=== PATIENT | female | born 1965 | race Two or more races ===

== ENCOUNTER 2016-04-27 09:05 | Day surgery (SDC) | payer BC ==
[~2016-04-27] VITALS: Ht 154.9 cm; Wt 64.1 kg
[2016-04-27 10:02] VITALS: Ht 154.9 cm; Wt 64.1 kg
[2016-04-27 10:40] VITALS: BP 139/75; PULSE 96; RESP 16
[2016-04-27] MEDS ORDERED: FENTAnyl 50 MCG/ML VIAL ONE (11:57)
[2016-04-27] MEDS ORDERED: MIDAZOLAM 1 MG/ML 2 ML INJ ONE ×2 (11:57)
[2016-04-27 12:13] VITALS: BP 90/65; PULSE 74; RESP 20
--- NOTE | 2016-04-27 14:34 | GILP ---
DATE OF PROCEDURE: NAME OF PROCEDURES: Colonoscopy, biopsy, and polypectomy. SURGEON: Mary Ellen Mayers MD PREOPERATIVE DIAGNOSIS: Screening colonoscopy. POSTOPERATIVE DIAGNOSES 1. Colonoscopy all the way to the cecum. 2. Flat polyp at 70 cm from the anus and part of it was removed using the snare and electrocautery and with biopsy forceps. 3. Internal hemorrhoids. INDICATION FOR THE PROCEDURE: Ms. Shahnaz Brown is a 50-year-old female patient who was scheduled for screening colonoscopy. The procedure and possible complications were well explained to the patient, she understood and cons ented to the procedure. DESCRIPTION OF PROCEDURE: Under the influence of fentanyl and Versed, the colonoscope was carefully introduced in the rectum, and under direct vision, it was advanced all the way to the cecum. FINDINGS: The patient had a flat polyp at 70 cm from the anus and part of it was removed using the snare and electrocautery and the remaining with biopsy forceps. The patient was noted to have inter nal hemorrhoids. She tolerated the procedure very well and there was no complication from the procedure. At the end of the procedures, she was awake with stable vital signs and she was discharged home to the care of her family. IMPRESSION: Please see postoperative diagnoses. PLAN: Await histopathology report. Depending upon the histopathology reports, that timing for the next colonoscopy will be decided. Dictated By: MARY ELLEN DARNELL/ALFREDO Conf#: [id number] DID#: [id number]
== END 2016-04-27 16:32 | disposition home or self-care (01) ==
LOC: GIL 09:05
PROVIDERS: ATTEND Internal Medicine Gastroenterology
DX: Z12.11 Encounter for screening for malignant neoplasm of colon (principal); K64.8 Other hemorrhoids; D12.5 Benign neoplasm of sigmoid colon
CPT/HCPCS: 45385; 88305; J2250; J3010; Z7610